=== PATIENT | male | born 1975 | race African-American/Black ===

== ENCOUNTER 2024-09-05 21:35 | Inpatient (IN) | payer MEDICAID ==
[~2024-09-05] VITALS: Ht 185.4 cm; Wt 86.7 kg
[2024-09-05] MEDS: IV NS 0.9% 1,000 ML BAG IV ONE (22:00)
[2024-09-05 22:12] LABS: APPEARANCE,URINE CLEAR (CLEAR); BILIRUBIN,URINE NEGATIVE (NEGATIVE); BLOOD, URINE TRACE-INTA Ery/uL (NEGATIVE); COLOR,URINE YELLOW (YELLOW); KETONES,URINE 3+ mg/dL (NEGATIVE); LEUKOCYTE ESTERASE ,URINE NEGATIVE (NEGATIVE); NITRITE, URINE NEGATIVE (NEGATIVE); PROTEIN,URINE NEGATIVE (NEGATIVE); UGLUCOSE 3+ mg/dL (NEGATIVE); UROBILINOGEN,URINE 0.2 EU/dL (0.2)
[2024-09-05] MEDS ORDERED: INSULIN REGULAR, HUMAN 100 UNIT/ML 10 ML VIAL ONE (22:12)
[2024-09-05 22:13] LABS: BASOPHILS % (AUTO) 0.4 % (0.0-2.0); EOSINOPHILS # (AUTO) 0.2 K/uL (0.0-0.7); EOSINOPHILS % (AUTO) 1.9 % (0.0-6.0); HEMATOCRIT 40 % (39-51); HEMOGLOBIN 13.3 g/dL (13.5-17.5); LYMPHOCYTES # (AUTO) 1.6 K/uL (0.8-4.8); LYMPHOCYTES % (AUTO) 19.9 % (20.0-44.0); MEAN CORPUSCULAR HEMOGLOBIN 29 PG (26.0-33.0); MEAN CORPUSCULAR HGB CONC 33 g/dl (31.0-36.0); MEAN CORPUSCULAR VOLUME 87 fL (80-96); MONOCYTES # (AUTO) 0.8 K/uL (0.1-1.30); MONOCYTES % (AUTO) 10.1 % (2.0-12.0); NEUTROPHILS # (AUTO) 5.5 K/uL (1.8-8.9); NEUTROPHILS % (AUTO) 67.7 % (43.0-81.0); PLATELET COUNT (AUTO) 267 K/uL (150-450); RED BLOOD CELL COUNT(AUTO) 4.59 MIL/uL (4.5-6.0); RED CELL DISTRIBUTION WIDTH 13.8 % (11.5-15.0); WHITE BLOOD COUNT (AUTO) 8.2 K/uL (4.3-11.0)
[2024-09-05] MEDS: INSULIN REGULAR, HUMAN 100 UNIT/ML 10 ML VIAL IV ONE (22:14)
[2024-09-05 22:23] LABS: RBC,URINE 0-2 /HPF (0-2); WBC,URINE NONE SEEN /HPF (0-3)
[2024-09-05 22:24] LABS: ADD URINE CULTURE NO; BACTERIA,URINE None seen /HPF (None Seen); CALCIUM, SERUM 9.9 mg/dL (8.5-10.1); CREATININE 1.7 mg/dL (0.6-1.3); POTASSIUM 4.6 mmol/L (3.5-5.1); SQUAMOUS EPITHELIAL CELL,UR Rare /HPF (None Seen)
[2024-09-05 22:45] LABS: ABG OXYGEN SATURATION 94.2 % (94.0-98.0); ABG PCO2 39.4 mmHg (35.0-48.0); ABG PH 7.299 (7.350-7.450); ABG PO2 76.2 mmHg (83.0-108.0); ABG TOTAL HEMOGLOBIN 12.9 G/dL (13.5-17.5); COHb 1.9 % (0.5-1.5); MetHb 0.3 % (0.0-1.5); O2Hb 92.1 % (94.0-97.0); SITE, ABG RIGHT BRACHIAL
[2024-09-06] VITALS (13 sets, daily range): BP systolic 118–147; BP diastolic 63–86; TEMP 97.9–98.9; O2SAT 95–98
[2024-09-06] MEDS ORDERED: MAGNESIUM HYDROXIDE 30 ML UDC PO PRN
[2024-09-06] MEDS ORDERED: ACETAMINOPHEN 325 MG TABLET PO PRN
[2024-09-06] MEDS ORDERED: MAG HYDROX/AL HYDROX/SIMETH 30 ML UDC PO PRN
[2024-09-06] MEDS ORDERED: ONDANSETRON HCL/PF 4 MG/2 ML VIAL IVP PRN
[2024-09-06] MEDS ORDERED: ALPRAZOLAM 0.5 MG TABLET PO PRN
[2024-09-06] MEDS ORDERED: Z GUARD REMEDY 4 OZ OINT TP PRN
[2024-09-06] MEDS: INSULIN REGULAR, HUMAN 100 UNIT in IV NS 0.9% 99 ML IV PRN ×2 (00:02→00:51)
[2024-09-06] MEDS: IV NS 0.9% 1,000 ML IV PRN ×2 (00:46→08:31)
[2024-09-06] MEDS ORDERED: hydrOXYzine PAMOATE 25 MG CAPSULE PO PRN (01:00)
[2024-09-06] MEDS: BLOOD SUGAR DIAGNOSTIC 1 EACH STRIP IN SCH ×2 (01:01→12:03)
[2024-09-06] MEDS: QUETIAPINE FUMARATE 25 MG TABLET PO SCH ×2 (01:52→21:12)
[2024-09-06 05:08] LABS: BASOPHILS % (AUTO) 0.4 % (0.0-2.0); EOSINOPHILS # (AUTO) 0.3 K/uL (0.0-0.7); EOSINOPHILS % (AUTO) 4.5 % (0.0-6.0); HEMATOCRIT 35 % (39-51); HEMOGLOBIN 11.9 g/dL (13.5-17.5); LYMPHOCYTES % (AUTO) 30.6 % (20.0-44.0); MEAN CORPUSCULAR HEMOGLOBIN 29 PG (26.0-33.0); MEAN CORPUSCULAR HGB CONC 34 g/dl (31.0-36.0); MEAN CORPUSCULAR VOLUME 84 fL (80-96); MONOCYTES # (AUTO) 0.6 K/uL (0.1-1.30); MONOCYTES % (AUTO) 10.1 % (2.0-12.0); NEUTROPHILS # (AUTO) 3.5 K/uL (1.8-8.9); NEUTROPHILS % (AUTO) 54.4 % (43.0-81.0); PLATELET COUNT (AUTO) 251 K/uL (150-450); RED BLOOD CELL COUNT(AUTO) 4.12 MIL/uL (4.5-6.0); WHITE BLOOD COUNT (AUTO) 6.4 K/uL (4.3-11.0)
[2024-09-06 05:20] LABS: CALCIUM, SERUM 8.9 mg/dL (8.5-10.1); PHOSPHORUS 3.3 mg/dL (2.5-4.9); POTASSIUM 3.2 mmol/L (3.5-5.1)
[2024-09-06 06:08] LABS: THYROID STIMULATING HORMONE 1.23 uIU/mL (0.358-3.74)
[2024-09-06] MEDS: POTASSIUM CHLORIDE 20 MEQ TAB.PRT.SR PO ONE (08:30)
[2024-09-06] MEDS ORDERED: DEXTROSE 50%-WATER 50 ML DISP.SYRIN IV PRN (08:30)
[2024-09-06] MEDS: PANTOPRAZOLE 40 MG VIAL IV SCH (08:30)
[2024-09-06] MEDS ORDERED: METH750T3 PO (08:58)
[2024-09-06] MEDS ORDERED: QUET50TA PO (08:58)
[2024-09-06] MEDS ORDERED: ONDA4TAB11 PO (08:58)
[2024-09-06] MEDS ORDERED: CYAN10006 IM (08:58)
[2024-09-06] MEDS ORDERED: FLUT16SP NS (08:58)
[2024-09-06] MEDS ORDERED: METF-442 PO (08:58)
[2024-09-06] MEDS ORDERED: HYDR50CA5 PO (08:58)
[2024-09-06 10:01] LABS: CALCIUM, SERUM 8.6 mg/dL (8.5-10.1); CREATININE 1.1 mg/dL (0.6-1.3); POTASSIUM 3.7 mmol/L (3.5-5.1)
[2024-09-06] MEDS: INSULIN REGULAR, HUMAN 100 UNIT/ML 3 ML VIAL SQ PRN (12:04)
[2024-09-07 04:35] VITALS: BP 108/60; TEMP 97.2; O2SAT 98
[2024-09-07 04:38] VITALS: BP 115/68; TEMP 97.3; O2SAT 100
[2024-09-07 07:27] LABS: CREATININE 1.1 mg/dL (0.6-1.3); POTASSIUM 4.1 mmol/L (3.5-5.1)
[2024-09-07 07:42] LABS: CALCIUM, SERUM 8.7 mg/dL (8.5-10.1)
[2024-09-07 08:00] VITALS: BP 100/62; TEMP 97.3; O2SAT 99
[2024-09-07] MEDS: PANTOPRAZOLE 40 MG TABLET.DR PO SCH (09:46)
[2024-09-07] MEDS ORDERED: hydrOXYzine PAMOATE 50 MG CAPSULE PO PRN (13:00)
[2024-09-07] MEDS ORDERED: ONDANSETRON 4 MG TAB.RAPDIS PO PRN (13:00)
[2024-09-07] MEDS: METHOCARBAMOL (750MG) 750 MG TABLET PO SCH (13:21)
[2024-09-07] MEDS ORDERED: METFORMIN 500 MG TABLET PO SCH (17:00)
[2024-09-07] MEDS ORDERED: QUETIAPINE FUMARATE 25 MG TABLET PO PRN (22:00)
[2024-09-08] MEDS ORDERED: FLUTICASONE PROPIONATE 16 GM BOTTLE NS SCH (09:00)
[2024-09-11] MEDS ORDERED: CYANOCOBALAMIN 1,000 MCG/ML VIAL IM SCH (13:00)
== END 2024-09-07 15:21 | disposition home or self-care (01) | DRG 420 ==
LOC: ER 21:39 → ICU 23:49 → MEDSG1 09-06 11:03
PROVIDERS: ADMIT Nurse Practitioner Acute Care; ATTEND Internal Medicine
DX: E11.10 Type 2 diabetes mellitus with ketoacidosis without coma (principal); N17.0 Acute kidney failure with tubular necrosis; E86.0 Dehydration; E87.6 Hypokalemia; F41.9 Anxiety disorder, unspecified; Z79.4 Long term (current) use of insulin; F17.210 Nicotine dependence, cigarettes, uncomplicated; R53.1 Weakness; Z79.84 Long term (current) use of oral hypoglycemic drugs; F19.11 Other psychoactive substance abuse, in remission
CPT/HCPCS: 36415; 71045-TC; 80048-TC; 81001; 82010-TC; 82962-TC; 83735-TC; 84100-TC; 84443-TC; 84484-TC; 85025-TC; 87081-TC; 98960; A4223; G0378; J1815; J2470; J7030